=== PATIENT | female | born 1995 | race African-American/Black ===

== ENCOUNTER 2017-04-15 02:03 | Emergency (ER) | payer SELFPAY ==
[~2017-04-15] VITALS: Ht 172.7 cm; Wt 73.0 kg
[2017-04-15 02:11] VITALS: BP 131/67; PULSE 95; RESP 18; TEMP 98.6; O2SAT 100
--- NOTE | 2017-04-15 02:25 | PD ---
HPI Chief Complaint: Cold / Flu Symptoms Time Seen by Provider: 02:15 Travel History International Travel<30 days: No Contact w/Intl Traveler<30days: No Traveled to known affect area: No History of Present Illness HPI 21 year-old female presents to the emergency department by EMS transportation for throat pain and complaint of difficulty breathing. Patient states yesterday she had fever and chills. Patient states that she took Mucinex and Benadryl without relief. Patient's last period was 7 days ago and denies . No dysuria frequency or urgency. No flank pain. No abdominal pain. No nausea or vomiting. Patient's had nonproductive cough without chest pain or shortness of breath or wheezing. Patient had to go to school late because of respiratory symptoms. Patient asked her roommate to call paramedics. Patient denies any chronic medical conditions. Patient is unable to identify exacerbating or alleviating factors. Symptoms of respiratory illness and present 2 days. PFSH Past Medical History Narrative Medical Immunizations current; no surgery; no tobacco use; nursing notes reviewed Medical History: Denies Significant Hx Diminished Hearing: No Immunizations Current: Yes Tetanus Vaccination: Unknown ?: Not LMP: 04/09/17 Past Surgical History Surgical History: No Previous Surgery Social History Alcohol Use: No Tobacco Use: No Substance Use: No Allergies-Medications (Allergen,Severity, Reaction): Coded Allergies: No Known Allergies (Verified Allergy, Unknown, 04/15/17) Reported Meds & Prescriptions Reported Meds & Active Scripts Active Tamiflu (Oseltamivir Phosphate) 75 Mg Cap 75 Mg PO BID 5 Days Narrative Medication [id number] Benadryl and Mucinex Review of Systems Except as stated in HPI: all other systems reviewed are Neg General / Constitutional: Positive: Fever, Chills (subjective) HENT: Positive: Lightheadedness, Sore Throat, Congestion Cardiovascular: No: Chest Pain or Discomfort Respiratory: Positive: Cough, No: Shortness of Breath, Wheezing Gastrointestinal: Positive: Nausea, No: Vomiting, Diarrhea, Abdominal Pain Genitourinary: No: Dysuria, Flank Pain Musculoskeletal: Positive: Myalgias, Arthralgias Skin: No Rash Neurologic: No: Weakness Psychiatric: No: Anxiety Hematologic/Lymphatic: No: Lymph Node Enlargement Physical Exam Narrative GENERAL: Well-developed well-nourished female in no acute distress no respiratory distress; no stridor or hoarseness SKIN: Warm and dry. No urticaria. HEAD: Normocephalic. EYES: No scleral icterus. No injection or drainage. ENT: Mucous membranes moist airway is patent posterior pharynx with exudative change; NECK: Supple, trachea midline. No JVD or lymphadenopathy. No meningismus no nuchal rigidity. CARDIOVASCULAR: Regular rate and rhythm without murmurs, gallops, or rubs. RESPIRATORY: Breath sounds equal bilaterally. No accessory muscle use. GASTROINTESTINAL: Abdomen soft, non-tender, nondistended. MUSCULOSKELETAL: No cyanosis, or edema. BACK: Nontender without obvious deformity. No CVA tenderness. Data Data Last Documented VS Vital Signs Date Time Temp Pulse Resp B/P (MAP) Pulse Ox O2 Delivery O2 Flow Rate FiO2 04/15/17 02:11 98.6 95 18 131/67 (88) 100 Orders Orders Influenzae A/B Antigen (04/15/17 02:15) Oseltamivir (Tamiflu) (04/15/17 02:45) Group A Rapid Strep Screen (04/15/17 02:48) Strep Culture (Group A) (04/15/17 02:30) Ed Discharge Order (04/15/17 03:35) MDM Medical Decision Making Medical Screen Exam Complete: Yes Emergency Medical Condition: Yes Medical Record Reviewed: Yes Interpretation(s) influenza a/b ag: B positive RSA: negative Differential Diagnosis Viral syndrome, pharyngitis, influenza, sinusitis, bronchitis, UTI, , allergic reaction; unlikely retropharyngeal abscess no evidence for peritonsillar abscess Narrative Course Specimens collected for strep test and influenza antigen Influenza B antigen positive; patient given first dose of Tamiflu; patient hydrated and stable for outpatient management Diagnosis Primary Impression: Influenza Referrals: Primary Care Physician call for appointment Patient Instructions: General Instructions Additional Instructions: Increase fluid hydration Take antiviral as prescribed Take acetaminophen/Tylenol as often as every 4 hours as needed for fever 100.4 F or greater or for minor pain Take ibuprofen/Advil/Motrin 600 mg as often as every 6 hours up to 800 mg as often as every 8 hours for fever 100.4F or greater or for pain associated with inflammation Follow-up with primary care provider Return to the emergency department for any concerns or change in condition Med/Other Pt SpecificInfo: Prescription(s) given Scripts Oseltamivir (Tamiflu) 75 Mg Cap 75 MG PO BID for Mgmt Viral Infection for 5 Days, #10 CAP 0 Refills Prov: Evette Erwin MD 04/15/17 Disposition: 01 DISCHARGE HOME Condition: Stable Evette Erwin MD Apr 15, 2017 02:25
[2017-04-15] MEDS ORDERED: OSELTAMIVIR PHOSPHATE 75 MG CAP PO ONE (02:45)
[2017-04-15] MEDS ORDERED: OSEL75 PO (02:46)
== END 2017-04-15 04:07 | disposition home or self-care (01) ==
LOC: NEPC 02:03
DX: J10.1 Influenza due to other identified influenza virus with other respiratory manifestations (principal)
CPT/HCPCS: 87081; 87804; 87880; 99283